=== PATIENT | female | born 1945 | race African-American/Black ===

== ENCOUNTER 2017-11-12 08:11 | Outpatient (CLI) | payer MEDICARE, MEDICAID ==
--- NOTE | 2017-11-12 09:00 | XRay Report ---
LUMBOSACRAL SPINE, FIVE VIEWS: HISTORY: Low back pain. Normal bone mineralization. There is mild levoscoliosis of the lumbar region estimated at 5-10 degrees with apex at L3 level. There is no evidence for compression deformity, subluxation or bone lesion. Mild degenerative endplate changes and mild facet arthropathy are identified at all levels. Disc space narrowing is most pronounced at L5-S1. The oblique images demonstrate wide patency of the neural foramen bilaterally. No pars defect is detected. The visualized sacrum and SI joints are within normal limits. IMPRESSION: Mild levoscoliosis with mild multilevel degenerative change as described. No acute process.
--- NOTE | 2017-11-13 09:49 | Vascular Lab Report ---
RENAL ARTERY DUPLEX EXAM: REASON FOR EXAM: Renal artery stenosis. NOTE: Visualization is technically adequate. COMMENTS ON THE AORTA: The aorta is patent. Normal flow velocities are observed. No aneurysmal dilatation is noted. Mild atherosclerotic change is identified. The celiac artery is patent with mildly elevated flow velocity of unknown clinical significance. The superior mesenteric artery is patent with normal flow velocity. COMMENTS ON THE RIGHT KIDNEY: The kidney measures 9.8 centimeters in greatest dimension. No obvious parenchymal abnormalities are noted. The renal artery is patent. Maximum systolic velocity is 150 cm/sec. This finding is consistent with less than 60% diameter reduction. Renal aortic index is 1.81. This finding is consistent with less than 60% diameter reduction. Overall findings are consistent with less than 60% diameter reduction in the renal artery. COMMENTS ON THE LEFT KIDNEY: The kidney measures 10.1 centimeters in greatest dimension. No obvious parenchymal abnormalities are noted. The renal artery is patent. Maximum systolic velocity is 134 cm/sec. This finding is consistent with less than 60% diameter reduction. Renal aortic index is 1.61. This finding is consistent with less than 60% diameter reduction. Overall findings are consistent with less than 60% diameter reduction in the renal artery. IMPRESSION: RIGHT KIDNEY: Less than 60% diameter reduction in the renal artery. LEFT KIDNEY: Less than 60% diameter reduction in the renal artery. Mild elevation of the velocity in the celiac artery of unknown clinical significance.
== END 2017-11-12 08:12 | disposition home or self-care (01) ==
LOC: VAS 08:11
PROVIDERS: ATTEND Internal Medicine Nephrology
DX: I70.1 Atherosclerosis of renal artery (principal); I10 Essential (primary) hypertension; M47.896 Other spondylosis, lumbar region; M41.86 Other forms of scoliosis, lumbar region; M12.88 Other specific arthropathies, not elsewhere classified, other specified site; R94.4 Abnormal results of kidney function studies
CPT/HCPCS: 72110; 93975